=== PATIENT | female | born 1980 | race Hispanic/Latino ===

== ENCOUNTER 2017-07-05 21:57 | Emergency (ER) | payer OTHER ==
[2017-07-05] MEDS ORDERED: Morphine 4 MG/ML VIAL ONE (22:58)
[2017-07-05] MEDS ORDERED: Ondansetron HCl/PF 4 MG/2 ML Vial ONE ×2 (22:59→23:06)
[2017-07-05 23:14] LABS: #Eosinphils 0.1 thou/uL (0.0-0.7); #Lymphocytes 3.2 thou/uL (1.20-3.40); #Monocytes 0.9 thou/uL (0.11-0.59); #Neutrophils 5.8 thou/uL (1.40-6.50); %Basophils 0.1 % (0.0-1.0); %Eosinophils 0.7 % (0.0-10.0); %Lymphocytes 32.2 % (21.0-51.0); %Monocytes 8.7 % (0.0-10.0); %Neutrophils 58.2 % (42.0-75.0); Hemoglobin 13.2 g/dL (12.0-16.0); Mean Corpuscular HGB CONC 34.7 g/dL (32.0-36.0); Mean Corpuscular Hemoglobin 32.6 pg (27.0-31.0); Mean Corpuscular Volume 93.9 fl (81.0-99.0); Mean Platelet Volume 7.2 fL (7.4-10.4); Platelet Count 286 thou/uL (130-400); RBC Distribution Width 11.9 % (11.5-14.5); Red Blood Cell (RBC) Count 4.06 mill/uL (4.20-5.40)
[2017-07-05 23:30] LABS: Anion Gap 9 mmol/L (10-20); BUN (Urea Nitrogen) 9 mg/dL (7.0-18.7); CRP (Inflammatory) Less than 0.50 mg/dL (= or < 0.5); Calc. Creatinine Clearance 0 mL/min (70-130); Calcium 9.2 mg/dL (7.8-10.44); Carbon Dioxide 29 mmol/L (22-29); Chloride 103 mmol/L (98-107); Estimated GFR-MDRD 90; Glucose 88 mg/dL (70-105); Potassium 3.1 mmol/L (3.5-5.1); Sodium 138 mmol/L (136-145)
[2017-07-05 23:38] LABS: BHCG - Serum Negative (NEGATIVE); Pregs Control Background? CLEAR/WHITE (CLR/WHITE); Pregs Control Bar Appear? YES (CONTROL BAR)
[2017-07-05] MEDS ORDERED: HYDROcodone/Acetaminophen 5/325 mg Tablet ONE (23:53)
== END 2017-07-06 00:13 | disposition home or self-care (01) ==
LOC: ERS 21:57
DX: M70.72 Other bursitis of hip, left hip (principal); M06.9 Rheumatoid arthritis, unspecified; J45.909 Unspecified asthma, uncomplicated; G43.909 Migraine, unspecified, not intractable, without status migrainosus; F32.9 Major depressive disorder, single episode, unspecified; F41.9 Anxiety disorder, unspecified; Z79.52 Long term (current) use of systemic steroids; Z79.899 Other long term (current) drug therapy
CPT/HCPCS: 80048; 84703; 85025; 85652; 86140; 96374; 96375; J2270; J2405

== ENCOUNTER 2018-02-14 11:52 | Emergency (ER) | payer OTHER ==
[2018-02-14 12:44] LABS: #Basophils 0.1 thou/uL (0.0-0.2); #Lymphocytes 2.1 thou/uL (1.20-3.40); #Monocytes 0.5 thou/uL (0.11-0.59); #Neutrophils 2.6 thou/uL (1.40-6.50); %Basophils 1.3 % (0.0-1.0); %Eosinophils 0.8 % (0.0-10.0); %Lymphocytes 39.8 % (21.0-51.0); %Monocytes 9.3 % (0.0-10.0); %Neutrophils 48.8 % (42.0-75.0); Hemoglobin 15.4 g/dL (12.0-16.0); Mean Corpuscular Hemoglobin 30.7 pg (27.0-31.0); Mean Corpuscular Volume 92.9 fL (78.0-98.0); Mean Platelet Volume 7.3 fL (7.4-10.4); Platelet Count 294 thou/uL (130-400); RBC Distribution Width 11.2 % (11.5-14.5); Red Blood Cell (RBC) Count 5.03 mill/uL (4.20-5.40); White Blood Cell (WBC) Count 5.3 thou/uL (4.8-10.8)
[2018-02-14 13:07] LABS: ALT (SGPT) 17 U/L (8-55); AST (SGOT) 14 U/L (5-34); Albumin 4.6 g/dL (3.5-5.0); Alkaline Phosphatase 43 U/L (40-150); Anion Gap 11 mmol/L (10-20); BUN (Urea Nitrogen) 12 mg/dL (7.0-18.7); CK (CPK) 32 U/L (29-168); Calc. Creatinine Clearance 0 mL/min (70-130); Calcium 9.7 mg/dL (7.8-10.44); Carbon Dioxide 27 mmol/L (22-29); Chloride 104 mmol/L (98-107); Estimated GFR-MDRD 72; Globulin 2.9 g/dL (2.4-3.5); Glucose 89 mg/dL (70-105); Lipase 18 U/L (8-78); Protein, Total 7.5 g/dL (6.0-8.3); Sodium 138 mmol/L (136-145)
[2018-02-14 13:09] LABS: CKMB 0.4 ng/mL (0-6.6); Troponin I Less than 0.010 ng/mL (< 0.028)
--- NOTE | 2018-02-14 13:16 | RAD ---
AP VIEW CHEST: HISTORY: Chest pain. FINDINGS: AP chest was obtained on 02/14/2018. Comparison is made to the previous exam from 08/28/2016. AP view chest demonstrates the lungs to be well aerated. No evidence of active intrathoracic disease seen. No evidence of effusions, pneumonia, or pneumothorax seen. IMPRESSION: Unremarkable AP view chest. POS: [facility]
[2018-02-14] MEDS ORDERED: Propranolol HCl 20 MG TAB PO SCH (15:00)
[2018-02-14 17:45] LABS: Troponin I Less than 0.010 ng/mL (< 0.028)
== END 2018-02-14 18:23 | disposition home or self-care (01) ==
LOC: ERS 11:52
DX: R07.2 Precordial pain (principal); M06.9 Rheumatoid arthritis, unspecified; J45.909 Unspecified asthma, uncomplicated; G43.909 Migraine, unspecified, not intractable, without status migrainosus; F32.9 Major depressive disorder, single episode, unspecified; F41.9 Anxiety disorder, unspecified; Z79.899 Other long term (current) drug therapy
CPT/HCPCS: 36415; 71045; 80053; 82550; 82553; 83690; 84484; 85025; 93005

== ENCOUNTER 2018-09-14 17:14 | Emergency (ER) | payer OTHER, SELFPAY ==
[2018-09-14 17:44] LABS: Bilirubin Negative (Negative); Blood, Urine Small (Negative); Clarity CLEAR (Clear); Glucose, Urine (Dipstick) Negative (Negative); Leukocyte Negative (Negative); Nitrite Negative (Negative); Protein, Urine (Dipstick) Negative (Neg-Trace); Urobilinogen 0.2 mg/dL (0.2-1.0); pH, Urine 5.5 (5.0-9.0)
[2018-09-14 17:46] LABS: Pregnancy Test - Urine (BHCG) Negative (Negative); Pregu Control Background? CLEAR/WHITE (CLR/WHITE); Pregu Control Bar Appear? YES (CONTROL BAR)
[2018-09-14 17:47] LABS: Bacteria/HPF None Seen HPF (None Seen); Hyaline Casts/LPF 4-6 HYALINE CAST LPF (0-3 Hyaline); Pathc Cast-AUWi Flag 1.22 (0-2.49); Squamous Epithelial 0-3 HPF (0-3); WBC/HPF 0-3 HPF (0-3)
--- NOTE | 2018-09-14 18:41 | ULT ---
Exam: Pelvic ultrasound HISTORY: Pelvic pain COMPARISON: None TECHNIQUE: Multiple grayscale and color Doppler images were obtained in a transabdominal and transvag inal pelvic ultrasound. Spectral analysis of the Doppler waveforms of the ovaries were performed. FINDINGS: CERVIX: Grossly within normal limits where visualized. UTERUS: Mildly heterogeneous in appearance. ENDOMETRIAL STRIPE: Linearly oriented echogenic area within the region of the endometrial canal with associated posterior shadowing. This may be related to an intrauterine contraceptive device, but clinical correlation is suggested. No fluid is seen in the endometrial canal. RIGHT OVARY: Normal flow, without focal mass. LEFT OVARY:Few tiny less than 3 mm echogenic foci are seen within the left ovary which may represent tiny calcifications. Left ovary is otherwise normal in appearance. Flow is demonstrated in the left ovary. No free fluid is seen in the pelvis. IMPRESSION: 1. Mild heterogeneity of the uterus which is nonspecific. No focal mass is seen. 2. Increased echogenicity in the region of the endometrium with associated posterior shadowing. This may represent a intrauterine contraceptive device, but clinical correlation is recommended. 3. Probable tiny calcific lesions in the left ovary, though was otherwise have a normal sonographic a ppearance without focal mass. Flow is documented in each ovary.
[2018-09-14] MEDS ORDERED: Fioricet 325/50/40 mg Tablet PO SCH (19:15)
--- NOTE | 2018-09-14 19:46 | CT ---
CT lumbar spine without contrast: HISTORY: Lower back pain for one week. COMPARISON: No prior CT exams of the lumbar spine available FINDINGS: The visualized retroperitoneal structures demonstrate a normal nonenhanced CT appearance. The appendi x is visualized and normal in caliber. No fracture or subluxation is seen involving the lumbar spine L1-2: No significant central canal or neural foraminal narrowing is seen. L2-3: No significant central canal or neural foraminal narrowing is seen. L3-4: No significant central canal or neural foraminal narrowing is seen. L4-5: There is a mild broad-based disc bulge which does result in the anterior aspect of thecal sac a nd mild narrowing of the central spinal canal. Neural foramina are patent L5-S1: There is a minimal broad-based disc bulge at this level. Central spinal canal and neural lexy dacia are patent. IMPRESSION: 1. Mild disc bulges at the L4-5 and L5-S1 levels without significant narrowing of the central spinal canal at these levels, and the neural foramina are patent. 2. No fracture or subluxation involving lumbar spine.
== END 2018-09-14 20:54 | disposition home or self-care (01) ==
LOC: ERS 17:14
DX: M54.5 Low back pain (principal); R10.32 Left lower quadrant pain; G43.909 Migraine, unspecified, not intractable, without status migrainosus; F32.9 Major depressive disorder, single episode, unspecified; F41.9 Anxiety disorder, unspecified; Z79.899 Other long term (current) drug therapy
CPT/HCPCS: 72131; 76856; 81003; 81015; 81025

== ENCOUNTER 2020-01-12 08:41 | Emergency (ER) | payer BC, SELFPAY ==
[2020-01-12] MEDS ORDERED: diphenhydrAMINE 50 MG/ML VIAL ONE ×2 (09:24→09:25)
[2020-01-12] MEDS ORDERED: Metoclopramide 10 MG/10 ML UDCUP ONE (09:24)
[2020-01-12] MEDS ORDERED: Metoclopramide HCl 10 MG/2 ML VIAL ONE (09:25)
[2020-01-12] MEDS ORDERED: SUMAtriptan Succinate 6 MG/0.5 ML VIAL SC SCH (09:45)
== END 2020-01-12 10:38 | disposition home or self-care (01) ==
LOC: EEVIPCON 08:41 → ERS 08:41
DX: G43.909 Migraine, unspecified, not intractable, without status migrainosus (principal); M06.9 Rheumatoid arthritis, unspecified; J45.909 Unspecified asthma, uncomplicated; F32.9 Major depressive disorder, single episode, unspecified; F41.9 Anxiety disorder, unspecified
CPT/HCPCS: 96372; 99283; J1200; J2765; J3030

== ENCOUNTER 2020-02-11 13:34 | Observation (INO) | payer BC ==
[2020-02-11 15:16] LABS: #Basophils 0.1 thou/uL (0.0-0.2); #Eosinphils 0.1 thou/uL (0.0-0.7); #Lymphocytes 2.8 thou/uL (1.20-3.40); #Monocytes 0.6 thou/uL (0.11-0.59); #Neutrophils 4.4 thou/uL (1.40-6.50); %Basophils 0.7 % (0.0-1.0); %Eosinophils 0.9 % (0.0-10.0); %Lymphocytes 34.5 % (21.0-51.0); %Neutrophils 55.8 % (42.0-75.0); Hemoglobin 14.2 g/dL (12.0-16.0); Mean Corpuscular HGB CONC 34.5 g/dL (32.0-36.0); Mean Corpuscular Hemoglobin 31.8 pg (27.0-31.0); Mean Corpuscular Volume 92.2 fL (78.0-98.0); Mean Platelet Volume 7.7 fL (7.4-10.4); Platelet Count 268 thou/uL (130-400); RBC Distribution Width 11.8 % (11.5-14.5); Red Blood Cell (RBC) Count 4.48 mill/uL (4.20-5.40)
--- NOTE | 2020-02-11 15:30 | RAD ---
PORTABLE CHEST: Date: 02-11-2020 PROVIDED CLINICAL HISTORY: Chest pain FINDINGS: Comparison 02-14-18. Cardiac and mediastinal silhouette is within normal limits. There is a 7-8 mm left upper lobe pulmona ry nodule. The lungs appear otherwise clear. No pleural fluid or pneumothorax apparent. IMPRESSION: 7-8 mm left upper lung zone pulmonary nodule. Non-emergent follow up chest CT is recommended. Code: Lung Nodule POS: [facility]
[2020-02-11 15:43] LABS: ALT (SGPT) 13 U/L (8-55); AST (SGOT) 17 U/L (5-34); Albumin 4.3 g/dL (3.5-5.0); Alkaline Phosphatase 36 U/L (40-110); Anion Gap 13 mmol/L (10-20); BUN (Urea Nitrogen) 11 mg/dL (7.0-18.7); Bilirubin, Total 0.8 mg/dL (0.2-1.2); CK (CPK) 86 U/L (29-168); Calc. Creatinine Clearance 0 mL/min (70-130); Calcium 9.4 mg/dL (7.8-10.44); Carbon Dioxide 24 mmol/L (22-29); Chloride 104 mmol/L (98-107); Estimated GFR-MDRD 77; Globulin 2.9 g/dL (2.4-3.5); Glucose 86 mg/dL (70-105); Potassium 4.3 mmol/L (3.5-5.1); Protein, Total 7.2 g/dL (6.0-8.3); Sodium 137 mmol/L (136-145)
[2020-02-11] MEDS ORDERED: Aspirin Chewable 81 MG TAB ONE (16:06)
[2020-02-11] MEDS ORDERED: Nitroglycerin 2% Ointment 1 INCH/1 GM Packet ONE ×2 (16:06→16:07)
[2020-02-11] MEDS ORDERED: Nitroglycerin 0.4 MG TAB (25 Tab Bottle) SL PRN (16:50)
[2020-02-11] MEDS ORDERED: Acetaminophen 325 MG TAB PO PRN (16:53)
[2020-02-11] MEDS ORDERED: Scopolamine 1.5 mg/72 hour Patch TD PRN (16:53)
[2020-02-11 17:01] LABS: BHCG - Serum Negative (NEGATIVE); Pregs Control Background? CLEAR/WHITE (CLR/WHITE); Pregs Control Bar Appear? YES (CONTROL BAR)
[2020-02-11 18:21] LABS: Troponin I 0.015 ng/mL (< 0.028)
[2020-02-11] MEDS ORDERED: Ondansetron PF 4 MG/2 ML Vial IVP PRN (21:00)
[2020-02-11] MEDS ORDERED: Ondansetron ODT 4 MG TAB SL PRN (21:00)
--- NOTE | 2020-02-11 21:26 | HP ---
CHIEF COMPLAINT: Dizziness. HISTORY OF PRESENT ILLNESS: The patient is a 39-year-old female with past medical history of inappropriate sinus tachycardia status post multiple ablations, history of rheumatoid arthritis with lupus symptoms, asthma, and migraines, who presented to the ER with complaints of dizziness and chest pain that started earlier today and persistent intermittently throughout the day. The patient noticed that her heart rate was fluctuating between as high as 160 and as low as high 30s on her Apple watch. In the ER, the patient was placed on a case monitor. Heart rate was within normal limits. She is not experiencing any symptoms at this time. She denied shortness of breath, palpitations, cough, or fevers. REVIEW OF SYSTEMS: Negative except as noted above. PAST MEDICAL HISTORY: As noted in HPI. PAST SURGICAL HISTORY: Includes cholecystectomy, tonsillectomy, heart catheterization, and hemorrhoid surgery. SOCIAL HISTORY: The patient denies alcohol use, illicit drug use, or smoking. FAMILY HISTORY: Noncontributory for current presentation. ALLERGIES: THE PATIENT IS ALLERGIC TO CEPHALOSPORINS AND PENICILLINS. PHYSICAL EXAMINATION: GENERAL: The patient is alert and oriented x3. HEENT: Head is normocephalic and atraumatic. Extraocular muscles are intact. NECK: Supple. CHEST: Clear to auscultation bilaterally. CARDIOVASCULAR: Revealed normal S1 and S2. Regular rate and rhythm. No murmurs, rubs, or gallops. ABDOMEN: Nondistended. NEUROLOGIC: Nonfocal. LABORATORY DATA: Laboratory data revealed a negative troponin level and unremarkable BMP and CBC. ASSESSMENT: 1. Symptomatic tachycardia and bradycardia. 2. History of cardiac ablation. 3. History of rheumatoid arthritis. 4. Chest pain. 5. History of asthma. PLAN: The patient will be placed in observation and her cardiac status will be monitored overnight. She has been wearing an external case monitor per her ripper operator. We will consult Dr. Garay tomorrow for further input. Check two more sets of troponins. Lovenox for DVT prophylaxis. We will hold her home nebivolol. Job ID: [id number]
[2020-02-11 21:46] LABS: Troponin I Less than 0.010 ng/mL (< 0.028)
[2020-02-11 23:43] VITALS: BMI 29.7
[2020-02-12] MEDS: Hydroxychloroquine Sulfate 200 MG TAB PO SCH ×3 (00:51→23:27)
[2020-02-12 04:29] LABS: #Basophils 0.1 thou/uL (0.0-0.2); #Eosinphils 0.2 thou/uL (0.0-0.7); #Lymphocytes 3.5 thou/uL (1.20-3.40); #Monocytes 0.8 thou/uL (0.11-0.59); #Neutrophils 2.7 thou/uL (1.40-6.50); %Eosinophils 2.1 % (0.0-10.0); %Lymphocytes 48.8 % (21.0-51.0); %Monocytes 11.4 % (0.0-10.0); %Neutrophils 36.8 % (42.0-75.0); Hemoglobin 12.4 g/dL (12.0-16.0); Mean Corpuscular HGB CONC 35.7 g/dL (32.0-36.0); Mean Corpuscular Hemoglobin 32.9 pg (27.0-31.0); Mean Platelet Volume 7.7 fL (7.4-10.4); Platelet Count 220 thou/uL (130-400); RBC Distribution Width 11.7 % (11.5-14.5); Red Blood Cell (RBC) Count 3.78 mill/uL (4.20-5.40); White Blood Cell (WBC) Count 7.2 thou/uL (4.8-10.8)
[2020-02-12 04:57] LABS: Anion Gap 11 mmol/L (10-20); BUN (Urea Nitrogen) 20 mg/dL (7.0-18.7); Calc. Creatinine Clearance 127 mL/min (70-130); Calcium 8.8 mg/dL (7.8-10.44); Carbon Dioxide 24 mmol/L (22-29); Chloride 106 mmol/L (98-107); Estimated GFR-MDRD 79; Glucose 103 mg/dL (70-105); Sodium 137 mmol/L (136-145)
[2020-02-12] MEDS: Enoxaparin Sodium 40 MG/0.4 ML SYRINGE SC SCH (09:37)
[2020-02-12 13:02] LABS: SARS-CoV-2 MS2 Positive; SARS-CoV-2 N Gene Negative; SARS-CoV-2 S Gene Negative; SARS-CoV-2 by NAA Not Detected (NotDetected); SARS-CoV-2 orf1ab Negative
--- NOTE | 2020-02-12 16:40 | PDOC.HOSPP ---
- Subjective Encounter Date: 02/12/20 Encounter Time: 08:00 Subjective: Patient seen for follow-up regarding arrhythmia. She denies chest pain or shortness of breath at this time. - Objective Vital Signs & Weight: Vital Signs (12 hours) Temp Pulse Resp BP Pulse Ox 02/12/20 15:21 97.2 F L 78 16 112/56 L 99 02/12/20 11:33 97.7 F 77 16 110/56 L 99 02/12/20 07:36 98.1 F 75 16 107/53 L 100 02/12/20 07:33 100 Weight Weight 189 lb 9 oz I&O: 02/11/20 02/12/20 02/13/20 06:59 06:59 06:59 Intake Total 850 Balance 850 Result Diagrams: 02/12/20 04:13 02/12/20 04:13 Additional Labs: Labs and MAR reviewed by me EKG Reviewed by me: Yes (Telemetry: NSR) Hospitalist ROS - Review of Systems Respiratory: denies: cough, shortness of breath, SOB with excertion, pleuritic pain, wheezing Cardiovascular: denies: chest pain, palpitations, orthopnea, paroxysmal noc. dyspnea, edema, light headedness - Medication Medications: Active Medications Generic Name Dose Route Start Last Admin Trade Name Freq PRN Reason Stop Dose Admin Acetaminophen 650 mg 02/11/20 16:53 02/12/20 00:50 Acetaminophen 325 Mg Tab PO 650 mg Q6H PRN Administration Pain Enoxaparin Sodium 40 mg 02/12/20 09:00 02/12/20 09:37 Enoxaparin Sodium 40 Mg/0.4 Ml Syringe SC 40 mg 0900 SIERRA Administration Hydroxychloroquine Sulfate 200 mg 02/11/20 21:00 02/12/20 09:37 Hydroxychloroquine Sulfate 200 Mg Tab PO 200 mg BID SIERRA Administration - Exam General Appearance: awake alert Eye: anicteric sclera ENT: moist mucosa Neck: supple Heart: RRR Respiratory: CTAB Gastrointestinal: soft, non-tender Skin: no rashes Psychiatric: normal affect, normal behavior Hosp A/P (1) Arrhythmia Code(s): I49.9 - CARDIAC ARRHYTHMIA, UNSPECIFIED Status: Acute (2) Asthma Code(s): J45.909 - UNSPECIFIED ASTHMA, UNCOMPLICATED Status: Chronic (3) Migraines Code(s): G43.909 - MIGRAINE, UNSP, NOT INTRACTABLE, WITHOUT STATUS MIGRAINOSUS Status: Chronic (4) Rheumatoid arthritis Code(s): M06.9 - RHEUMATOID ARTHRITIS, UNSPECIFIED Status: Chronic - Plan Patient is currently in normal sinus rhythm, continue to monitor on telemetry. Await cardiology service input. Asthma stable. Rheumatoid arthritis stable. Migraine stable.
[2020-02-12] MEDS ORDERED: ALPRAZolam 0.5 MG TAB PO PRN (16:42)
[2020-02-12] MEDS ORDERED: FOLIC ACID PO SCH (16:45)
[2020-02-12] MEDS ORDERED: CERTOLIZUMAB PEGOL 400 MG/2 ML SC SCH (16:45)
[2020-02-12] MEDS ORDERED: [UNRECOGNIZED DRUG - OTHER] PO SCH (16:45)
[2020-02-12] MEDS ORDERED: LUTEIN PO SCH (16:45)
[2020-02-12] MEDS ORDERED: LEVONORGESTREL IUD IY SCH (16:45)
[2020-02-12] MEDS ORDERED: Leucovorin Calcium 5 MG TAB PO SCH (16:45)
[2020-02-12] MEDS ORDERED: MULTIVIT MIN PO SCH (16:45)
[2020-02-12] MEDS ORDERED: Methotrexate Sodium 2.5 MG TAB PO SCH (16:45)
--- NOTE | 2020-02-12 20:45 | CON ---
DATE OF CONSULTATION: HISTORY: Carol Miller is a 39-year-old female, who has a longstanding history of inappropriate sinus tachycardia and has undergone ablation in the past. The one electrophysiology report I have from [facility] is from March 2015 where she underwent ablation of paroxysmal supraventricular tachycardia. She was most recently seen on January 18, 2020, stating that she would have episodes of syncope/presyncope. She states that her heart rate could go into the 40s and she gets dizzy and short of breath. Also, she states her heart rate would go in the 160s. This was all via her Apple watch. She had a 30-day monitor placed when she was seen in the office. Also since then, echocardiogram was performed, which revealed ejection fraction of 50% to 55% with mild mitral regurgitation and mild tricuspid regurgitation. Yesterday, she had onset of somewhat sharp chest discomfort that would last for few seconds up to a minute. The pain was not pleuritic in nature. She continued to have these episodes and decided to be checked out. Cardiac enzymes have been unremarkable. PAST MEDICAL HISTORY: Rheumatoid arthritis, asthma, migraine headaches, inappropriate sinus tachycardia. OPERATIONS: Radiofrequency ablation, breast lumpectomy, breast reduction, laparoscopic evaluation for endometriosis, cholecystectomy, tonsillectomy, hemorrhoidectomy. SOCIAL HISTORY: She does not smoke or drink. FAMILY HISTORY: Unremarkable. MEDICATIONS: 1. Albuterol 2 puffs q.4 hours p.r.n. 2. Xanax 0.5 mg at bedtime p.r.n. 3. Cimzia 400 mg subcu q.28 days. 4. Vitamin D3. 5. Adderall 15 mg daily. 6. Folic acid 2 tablets q.7 days. 7. Plaquenil 200 mg b.i.d. 8. . 9. Vyvanse 50 mg q.a.m. 10. Methotrexate 15 mg q.7 days. 11. Prednisone 5 mg p.r.n. 12. Trazodone 50 at bedtime. ALLERGIES: KEFLEX, MORPHINE, PENICILLIN, AND SHELLFISH. REVIEW OF SYSTEMS: A 10-point review of systems is otherwise unremarkable. PHYSICAL EXAMINATION: VITAL SIGNS: Blood pressure 112/56, pulse of 78. HEENT: PERRL. NECK: Supple. CHEST: Clear. CARDIAC: S1 and S2 normal without any S3, S4, or murmurs. ABDOMEN: Normal bowel sounds without tenderness or organomegaly. EXTREMITIES: Reveal no clubbing, cyanosis, or edema. NEUROLOGIC: Grossly intact. MUSCULOSKELETAL: Revealed palpable chest wall tenderness. LABORATORY DATA: EKG reveals sinus rhythm. She has not had any significant shannan or tachycardia on the monitor. Sodium 137, potassium 4.3, chloride 106, carbon dioxide 24, BUN 20, creatinine 0.81. Cortisol recently was normal. Hemoglobin 12.4, hematocrit 34.8, white count 7200, platelets 220,000. COVID negative. IMPRESSION: 1. Atypical chest discomfort, probably chest wall in nature related to rheumatoid arthritis. 2. History of paroxysmal supraventricular tachycardia ablation as well as history of inappropriate sinus tachycardia. She states that her Apple watch shows heart rates in the 30s and 160s. However, at the same time, she has a 30-day monitor on and with her minimum heart rate on this has been 59 per minute, maximum heart rate 110 per minute, and so I feel that her Apple watch is totally inaccurate and should not be relied upon in the future. 3. Rheumatoid arthritis. 4. History of syncope, however, she has not had any episodes with a monitor on and she has not had any significant arrhythmias. PLAN: The patient will undergo adenosine Cardiolite testing to further evaluate her chest discomfort, although I feel this is not cardiac in nature. If that study is normal, then she may be discharged to continue to be monitored with the outpatient monitor. Once again, I emphasized to her that I would not follow her Apple watch because it is totally inaccurate. Job ID: [id number] [facility]
[2020-02-12] MEDS ORDERED: traZODone HCl 50 MG TAB PO SCH (21:00)
[2020-02-12] MEDS: Gabapentin 100 MG CAP PO SCH (23:26)
[2020-02-13 05:07] LABS: Anion Gap 11 mmol/L (10-20); BUN (Urea Nitrogen) 14 mg/dL (7.0-18.7); Calc. Creatinine Clearance 121 mL/min (70-130); Calcium 8.7 mg/dL (7.8-10.44); Carbon Dioxide 25 mmol/L (22-29); Chloride 106 mmol/L (98-107); Estimated GFR-MDRD 74; Glucose 95 mg/dL (70-105); Potassium 4.1 mmol/L (3.5-5.1); Sodium 138 mmol/L (136-145)
[2020-02-13 05:25] LABS: Band 2 % (5-11); Eosinophils 4 % (0-10); Hemoglobin 12.5 g/dL (12.0-16.0); Lymphocytes 48 % (21-51); MDiff Complete? YES; Mean Corpuscular HGB CONC 34.2 g/dL (32.0-36.0); Mean Corpuscular Hemoglobin 31.5 pg (27.0-31.0); Mean Corpuscular Volume 92.1 fL (78.0-98.0); Monocytes 5 % (0-10); Neutrophil 41 % (42-75); Platelet Count 227 thou/uL (130-400); Platelet Morphology Comment Appears Decreased; RBC Distribution Width 11.8 % (11.5-14.5); RBC Morphology Normal; Red Blood Cell (RBC) Count 3.98 mill/uL (4.20-5.40); White Blood Cell (WBC) Count 7.4 thou/uL (4.8-10.8)
[2020-02-13] MEDS ORDERED: Lisdexamfetamine Dimesylate [Vyvanse] 50 MG PO SCH (09:00)
[2020-02-13] MEDS ORDERED: Cholecalciferol 1,000 UNITS (25 MCG) TAB PO SCH (09:00)
--- NOTE | 2020-02-13 11:18 | NM ---
EXAM: CARDIAC SPECT HISTORY: Chest pain, syncope, status post ablation, asthma TECHNIQUE: A myocardial perfusion scan was performed using the single isotope 1 day protocol with denise hnetium 99m sestamibi. [10 mCi] was injected intravenously for the rest exam followed by 30 mCi for the stress study. Pharmacologic stress with Lexiscan was monitored and interpreted by the nurse practitioner FINDINGS: Homogeneous tracer distribution is seen in the myocardial segments on stress and rest image s without fixed or reversible defects. Gated SPECT LVEF: 58% Wall motion exam: Normal IMPRESSION: Normal myocardial perfusion scan
[2020-02-13 12:00] VITALS: BP 117/56; TEMP 98.9
[2020-02-13] MEDS: Enoxaparin Sodium 40 MG/0.4 ML SYRINGE SC SCH (12:09)
[2020-02-13] MEDS: Gabapentin 100 MG CAP PO SCH ×2 (12:10→14:30)
[2020-02-13] MEDS: Hydroxychloroquine Sulfate 200 MG TAB PO SCH (12:10)
[2020-02-13] MEDS ORDERED: Regadenoson 0.4 MG/5 ML SYRINGE ONE (13:32)
--- NOTE | 2020-02-13 14:14 | PDOC.DS.DS ---
Provider - Provider Date of Admission: 02/11/20 16:48 Date of Discharge: 02/13/20 Admitting Provider: Kamala Herrera MD Consultations: Cardiology (Dr. Garay) Primary Care Physician: Dino Jain MD Course - Hospital Course Hospital Course: Discharge diagnosis: 1. Chest pain 2. Chest pain likely due to musculoskeletal etiology 3. Pulmonary nodule 4. COVID-19 PCR test negative Hospital course: Patient is a pleasant 13-year-old lady who was admitted to [facility] on February 12, 2020 for slow heart rate as noted on her apple watch as well as chest pain. She was seen by cardiology service. Stress test was negative. Pulmonary embolism was ruled out with a negative D-dimer. Cardiology service informed her that the Apple Watch readings may be inaccurate, since she already had a monitor which did not show any evidence of bradycardia arrhythmias. She does have a lung nodule in the left upper lobe, will need nonemergent CT scan as outpatient. He has been advised to follow-up with her primary care provider for the same. - Labs Lab Results: 02/13/20 04:03 02/13/20 04:03 Abnormal Lab Results - Last 48 hrs 02/11/20 15:04: Alkaline Phosphatase 36 L 02/11/20 15:04: MCH 31.8 H, Monocytes # 0.6 H 02/12/20 04:13: BUN 20 H 02/12/20 04:13: RBC 3.78 L, Hct 34.8 L, MCH 32.9 H, Neutrophils % 36.8 L, Mon ocytes % 11.4 H, Lymphocytes # 3.5 H, Monocytes # 0.8 H 02/13/20 04:03: RBC 3.98 L, MCH 31.5 H, Neutrophils % (Manual) 41 L, Band Neuts % (Manual) 2 L, Plt Morphology Comment Appears Decreased L 02/13/20 13:12: D-Dimer Less than 0.27 L - Physical Exam Vitals: Vital Signs (12 hours) Temp Pulse Resp BP Pulse Ox 02/13/20 11:59 98.9 F 66 20 117/56 L 100 02/13/20 08:34 96 02/13/20 07:32 98.3 F 69 16 103/50 L 96 02/13/20 03:50 98.3 F 74 16 106/55 L 98 Weight Weight 189 lb 9 oz Physical Exam: The patient was seen and examined on the day of discharge. Patient denies chest pain or shortness of breath. Vital signs are stable. S1 and S2 are heard. Lungs are clear to auscultation bilaterally. Problem - Problem (1) Arrhythmia Code(s): I49.9 - CARDIAC ARRHYTHMIA, UNSPECIFIED Status: Acute (2) Asthma Code(s): J45.909 - UNSPECIFIED ASTHMA, UNCOMPLICATED Status: Chronic (3) Migraines Code(s): G43.909 - MIGRAINE, UNSP, NOT INTRACTABLE, WITHOUT STATUS MIGRAINOSUS Status: Chronic (4) Rheumatoid arthritis Code(s): M06.9 - RHEUMATOID ARTHRITIS, UNSPECIFIED Status: Chronic Plan - Discharge Medications Home Medications: Medication Instructions Recorded Confirmed Type Levonorgestrel [Mirena] 1 each IY ONE 09/17/12 02/12/20 History ALPRAZolam [Xanax] 0.5 mg PO HS PRN 02/25/15 02/12/20 History Albuterol Sulfate [Proventil Hfa] 2 puff INH Q4H PRN 02/25/15 02/12/20 History Certolizumab Pegol [Cimzia] 400 mg SC Q28D 02/25/15 02/12/20 History Cholecalciferol (Vitamin D3) 5,000 unit PO DAILY 02/25/15 02/12/20 History [Vitamin D3] Folic Acid/Multivit-Min/Lutein 2 tablet PO Q7D 02/25/15 02/12/20 History [Multi-Vitamin Gummies] Hydroxychloroquine Sulfate 200 mg PO BID 02/25/15 02/12/20 History [Plaquenil] Lisdexamfetamine Dimesylate 50 mg PO QAM 02/25/15 02/12/20 History [Vyvanse] Methotrexate Sodium 15 mg PO Q7D 02/25/15 02/12/20 History predniSONE 5 mg PO PRN PRN 02/25/15 02/12/20 History Dextroamphetamine/Amphetamine 15 mg PO DAILY 02/12/20 02/12/20 History [Adderall] Gabapentin 100 mg PO TID 02/12/20 02/12/20 History Leucovorin Calcium 5 mg PO Q7D 02/12/20 02/12/20 History Ondansetron HCl 4 mg PO PRN PRN 02/12/20 02/12/20 History SUMAtriptan Succinate [Sumatriptan 6 mg SC ASDIR PRN 02/12/20 02/12/20 History Succinate] traZODone HCl [Trazodone HCl] 50 mg PO HS 02/12/20 02/12/20 History Allergies: cephalexin monohydrate [From Keflex] Allergy (Verified 08/29/19 20:00) Short of Breath morphine Allergy (Verified 02/11/20 23:59) Penicillins Allergy (Verified 08/29/19 20:00) Rash shellfish derived Allergy (Verified 02/11/20 23:59) TAPE Allergy (Uncoded 08/29/19 20:00) Hives - Discharge Instructions Discharge Instructions:: Follow-up with primary care provider regarding lung nodule. You will need CT scan of chest as outpatient. Activity:: No Restrictions Nourishment:: Heart Healthy Diet - Follow up Plan Referrals: Dino Jain MD [Primary Care Provider] - 3 Days (Please call the office to schedule an appointment within 7 days. ) Disposition: HOME Quality - Care Measures CORE MEASURES:: N/A
[2020-02-13] MEDS ORDERED: DEXTROAMPHETAMINE PO SCH (16:00)
[2020-02-13] MEDS ORDERED: AMPHETAMINE PO SCH (16:00)
== END 2020-02-13 15:01 | disposition home or self-care (01) ==
LOC: ERS 13:34 → 2NO 15:17 → INTOOBSV 16:48 → ERHOLD 16:48 → 2NO 20:58
PROVIDERS: ADMIT Internal Medicine; ATTEND Internal Medicine
DX: I49.9 Cardiac arrhythmia, unspecified (principal); R07.89 Other chest pain; R91.1 Solitary pulmonary nodule; J45.909 Unspecified asthma, uncomplicated; G43.909 Migraine, unspecified, not intractable, without status migrainosus; M06.9 Rheumatoid arthritis, unspecified; Z79.899 Other long term (current) drug therapy; Z88.0 Allergy status to penicillin; Z88.1 Allergy status to other antibiotic agents; Z88.5 Allergy status to narcotic agent; Z91.013 Allergy to seafood; Z91.048 Other nonmedicinal substance allergy status; Z20.828 Contact with and (suspected) exposure to other viral communicable diseases
CPT/HCPCS: 36415; 36600; 71045; 78452; 80048; 80053; 82550; 84484; 84703; 85025; 85379; 87635; 93005; 93017; 94760; 96372; A9500; G0378; J1650; J2785; U0003

== ENCOUNTER 2020-04-29 20:57 | Emergency (ER) | payer BC ==
[2020-04-29] MEDS ORDERED: diphenhydrAMINE 50 MG/ML VIAL ONE (21:36)
[2020-04-29] MEDS ORDERED: Ketorolac Tromethamine 30 MG/ML VIAL ONE (21:36)
[2020-04-29] MEDS ORDERED: Metoclopramide 10 MG/10 ML UDCUP ONE (21:36)
[2020-04-29] MEDS ORDERED: Metoclopramide HCl 10 MG/2 ML VIAL ONE (21:37)
[2020-04-30 14:17] LABS: SARS-CoV-2 PCR by NAA Not Detected (NotDetected)
== END 2020-04-29 23:02 | disposition home or self-care (01) ==
LOC: ERS 20:57
DX: G43.909 Migraine, unspecified, not intractable, without status migrainosus (principal); J06.9 Acute upper respiratory infection, unspecified; M06.9 Rheumatoid arthritis, unspecified; J45.909 Unspecified asthma, uncomplicated; Z20.822 Contact with and (suspected) exposure to COVID-19; Z79.899 Other long term (current) drug therapy
CPT/HCPCS: 87635; 96374; 96375; J1200; J1885; J2765; U0003; U0005

== ENCOUNTER 2020-07-08 00:23 | Emergency (ER) | payer BC ==
[2020-07-08] MEDS ORDERED: methylPREDNISolone Sod Succ/PF 125 MG/2 ML VIAL ONE (00:57)
[2020-07-08] MEDS ORDERED: Famotidine/PF 20 mg/2ml Vial ONE (00:57)
[2020-07-08] MEDS ORDERED: Morphine 4 MG/ML VIAL ONE (00:57)
[2020-07-08] MEDS ORDERED: Ondansetron PF 4 MG/2 ML Vial ONE ×2 (00:57→02:49)
[2020-07-08] MEDS ORDERED: diphenhydrAMINE 50 MG/ML VIAL ONE (00:57)
[2020-07-08] MEDS ORDERED: Ketorolac Tromethamine 30 MG/ML VIAL ONE (01:04)
[2020-07-08 01:16] LABS: Mean Corpuscular HGB CONC 34.6 g/dL (32.0-36.0); Mean Corpuscular Hemoglobin 31.9 pg (27.0-31.0); Mean Corpuscular Volume 92.4 fL (78.0-98.0); Mean Platelet Volume 7.8 fL (7.4-10.4); Platelet Count 239 thou/uL (130-400); Red Blood Cell (RBC) Count 4.39 mill/uL (4.20-5.40)
[2020-07-08 01:20] LABS: ALT (SGPT) 12 U/L (8-55); AST (SGOT) 12 U/L (5-34); Albumin 4.1 g/dL (3.5-5.0); Alkaline Phosphatase 34 U/L (40-110); Anion Gap 12 mmol/L (10-20); BUN (Urea Nitrogen) 16 mg/dL (7.0-18.7); Calc. Creatinine Clearance 0 mL/min (70-130); Calcium 8.8 mg/dL (7.8-10.44); Carbon Dioxide 24 mmol/L (22-29); Chloride 105 mmol/L (98-107); Globulin 2.4 g/dL (2.4-3.5); Glucose 98 mg/dL (70-105); Lipase 31 U/L (8-78); Potassium 3.8 mmol/L (3.5-5.1); Protein, Total 6.5 g/dL (6.0-8.3); Sodium 137 mmol/L (136-145)
[2020-07-08 01:22] LABS: Band 9 % (5-11); Lymphocytes 8 % (21-51); MDiff Complete? YES; Monocytes 1 % (0-10); Neutrophil 82 % (42-75)
[2020-07-08] MEDS ORDERED: Fentanyl 100 MCG/2 ML VIAL ONE (02:49)
[2020-07-08] MEDS ORDERED: Iopamidol-370 76% 500 ML 1 ML ONE (09:42)
== END 2020-07-08 04:20 | disposition home health service (06) ==
LOC: ERS 00:23
DX: K59.00 Constipation, unspecified (principal); D72.829 Elevated white blood cell count, unspecified; M06.9 Rheumatoid arthritis, unspecified; J45.909 Unspecified asthma, uncomplicated
CPT/HCPCS: 36415; 71045; 74177; 80053; 83690; 84484; 85025; 93005; 94760; 96374; 96375; J1200; J1885; J2270; J2405; J2930; J3010; Q9967; S0028

== ENCOUNTER 2020-08-26 12:47 | Emergency (ER) | payer BC ==
[2020-08-26 13:22] LABS: #Basophils 0.1 thou/uL (0.0-0.2); #Eosinphils 0.1 thou/uL (0.0-0.7); #Lymphocytes 2.6 thou/uL (1.20-3.40); #Monocytes 0.6 thou/uL (0.11-0.59); #Neutrophils 2.4 thou/uL (1.40-6.50); %Eosinophils 1.4 % (0.0-10.0); %Lymphocytes 45.1 % (21.0-51.0); %Monocytes 10.9 % (0.0-10.0); %Neutrophils 41.5 % (42.0-75.0); Hemoglobin 14.1 g/dL (12.0-16.0); Mean Corpuscular Hemoglobin 31.4 pg (27.0-31.0); Mean Corpuscular Volume 92.5 fL (78.0-98.0); Mean Platelet Volume 7.5 fL (7.4-10.4); Platelet Count 274 thou/uL (130-400); RBC Distribution Width 11.7 % (11.5-14.5); Red Blood Cell (RBC) Count 4.49 mill/uL (4.20-5.40); White Blood Cell (WBC) Count 5.8 thou/uL (4.8-10.8)
[2020-08-26 13:44] LABS: ALT (SGPT) 12 U/L (8-55); AST (SGOT) 14 U/L (5-34); Albumin 4.2 g/dL (3.5-5.0); Alkaline Phosphatase 34 U/L (40-110); Anion Gap 11 mmol/L (10-20); BUN (Urea Nitrogen) 6 mg/dL (7.0-18.7); Bilirubin, Total 0.6 mg/dL (0.2-1.2); Calc. Creatinine Clearance 0 mL/min (70-130); Calcium 9.1 mg/dL (7.8-10.44); Carbon Dioxide 24 mmol/L (22-29); Chloride 106 mmol/L (98-107); Globulin 2.8 g/dL (2.4-3.5); Glucose 96 mg/dL (70-105); Lipase 24 U/L (8-78); Potassium 3.4 mmol/L (3.5-5.1); Sodium 138 mmol/L (136-145)
[2020-08-26 14:35] LABS: BHCG - Serum Negative (NEGATIVE); Pregs Control Background? CLEAR/WHITE (CLR/WHITE); Pregs Control Bar Appear? YES (CONTROL BAR)
[2020-08-26 15:01] LABS: Thyroid Stimulating Hormone 0.8205 uIU/mL (0.35-4.94)
== END 2020-08-26 17:38 | disposition home or self-care (01) ==
LOC: ERS 12:47
DX: R00.2 Palpitations (principal); J45.909 Unspecified asthma, uncomplicated; G43.909 Migraine, unspecified, not intractable, without status migrainosus
CPT/HCPCS: 36415; 71045; 80053; 82550; 83690; 83735; 84443; 84484; 84703; 85025; 93005

== ENCOUNTER 2020-10-09 14:31 | Emergency (ER) | payer BC ==
[2020-10-09 17:30] LABS: #Eosinphils 0.1 thou/uL (0.0-0.7); #Lymphocytes 2.4 thou/uL (1.20-3.40); #Monocytes 0.9 thou/uL (0.11-0.59); #Neutrophils 3.9 thou/uL (1.40-6.50); %Basophils 0.5 % (0.0-1.0); %Eosinophils 1.7 % (0.0-10.0); %Lymphocytes 32.9 % (21.0-51.0); Hemoglobin 13.4 g/dL (12.0-16.0); Mean Corpuscular Hemoglobin 32.8 pg (27.0-31.0); Mean Corpuscular Volume 93.8 fL (78.0-98.0); Mean Platelet Volume 7.8 fL (7.4-10.4); Platelet Count 236 thou/uL (130-400); RBC Distribution Width 11.4 % (11.5-14.5); Red Blood Cell (RBC) Count 4.09 mill/uL (4.20-5.40); White Blood Cell (WBC) Count 7.4 thou/uL (4.8-10.8)
[2020-10-09 17:37] LABS: BHCG - Serum Negative (NEGATIVE); Pregs Control Background? CLEAR/WHITE (CLR/WHITE); Pregs Control Bar Appear? YES (CONTROL BAR)
[2020-10-09 17:51] LABS: ALT (SGPT) 9 U/L (8-55); AST (SGOT) 15 U/L (5-34); Alkaline Phosphatase 35 U/L (40-110); Anion Gap 13 mmol/L (10-20); BUN (Urea Nitrogen) 10 mg/dL (7.0-18.7); Bilirubin, Total 0.8 mg/dL (0.2-1.2); Calc. Creatinine Clearance 0 mL/min (70-130); Calcium 8.9 mg/dL (7.8-10.44); Carbon Dioxide 19 mmol/L (22-29); Chloride 110 mmol/L (98-107); Globulin 2.5 g/dL (2.4-3.5); Glucose 79 mg/dL (70-105); Potassium 3.4 mmol/L (3.5-5.1); Protein, Total 6.5 g/dL (6.0-8.3); Sodium 139 mmol/L (136-145)
== END 2020-10-09 18:55 | disposition home or self-care (01) ==
LOC: ERS 14:31
DX: E87.6 Hypokalemia (principal); R42 Dizziness and giddiness; G43.909 Migraine, unspecified, not intractable, without status migrainosus; Z79.899 Other long term (current) drug therapy
CPT/HCPCS: 36415; 71045; 80053; 84484; 84703; 85025; 93005

== ENCOUNTER 2021-01-29 18:14 | Emergency (ER) | payer BC ==
[2021-01-29 19:26] LABS: #Basophils 0.1 thou/uL (0.0-0.2); #Eosinphils 0.1 thou/uL (0.0-0.7); #Lymphocytes 2.9 thou/uL (1.20-3.40); #Neutrophils 3.5 thou/uL (1.40-6.50); %Basophils 0.7 % (0.0-1.0); %Eosinophils 1.7 % (0.0-10.0); %Lymphocytes 37.8 % (21.0-51.0); %Monocytes 12.9 % (0.0-10.0); Hemoglobin 13.2 g/dL (12.0-16.0); Mean Corpuscular HGB CONC 33.5 g/dL (32.0-36.0); Mean Corpuscular Hemoglobin 30.6 pg (27.0-31.0); Mean Corpuscular Volume 91.4 fL (78.0-98.0); Mean Platelet Volume 8.4 fL (7.4-10.4); Platelet Count 261 thou/uL (130-400); RBC Distribution Width 11.8 % (11.5-14.5); Red Blood Cell (RBC) Count 4.33 mill/uL (4.20-5.40); White Blood Cell (WBC) Count 7.5 thou/uL (4.8-10.8)
[2021-01-29 19:54] LABS: ALT (SGPT) 11 U/L (8-55); AST (SGOT) 13 U/L (5-34); Albumin 4.1 g/dL (3.5-5.0); Alkaline Phosphatase 41 U/L (40-110); Anion Gap 10 mmol/L (10-20); BUN (Urea Nitrogen) 10 mg/dL (7.0-18.7); Bilirubin, Total 0.8 mg/dL (0.2-1.2); Calc. Creatinine Clearance 0 mL/min (70-130); Calcium 9.1 mg/dL (7.8-10.44); Carbon Dioxide 25 mmol/L (22-29); Chloride 106 mmol/L (98-107); Glucose 88 mg/dL (70-105); Potassium 3.6 mmol/L (3.5-5.1); Sodium 137 mmol/L (136-145)
[2021-01-29 20:05] LABS: Globulin 2.8 g/dL (2.4-3.5); Protein, Total 6.9 g/dL (6.0-8.3)
[2021-01-29] MEDS ORDERED: Ketorolac Tromethamine 30 MG/ML VIAL ONE (20:26)
== END 2021-01-29 20:48 | disposition home or self-care (01) ==
LOC: ERS 18:14
DX: R09.1 Pleurisy (principal); M06.9 Rheumatoid arthritis, unspecified; I10 Essential (primary) hypertension; G43.909 Migraine, unspecified, not intractable, without status migrainosus; J45.909 Unspecified asthma, uncomplicated
CPT/HCPCS: 36415; 71045; 80053; 83880; 84443; 84484; 85025; 85379; 93005; 96372; J1885

== ENCOUNTER 2021-06-03 15:07 | Emergency (ER) | payer BC, SELFPAY ==
[~2021-06-03 15:07] MED LIST: Iopamidol 370 76% 100 ML VIAL ONE
[2021-06-03 16:46] LABS: #Lymphocytes 0.5 thou/uL (1.20-3.40); #Monocytes 0.7 thou/uL (0.11-0.59); #Neutrophils 8.9 thou/uL (1.40-6.50); %Basophils 0.2 % (0.0-1.0); %Eosinophils 0.3 % (0.0-10.0); %Lymphocytes 4.6 % (21.0-51.0); %Monocytes 6.9 % (0.0-10.0); %Neutrophils 88.1 % (42.0-75.0); Hemoglobin 13.5 g/dL (12.0-16.0); Mean Corpuscular HGB CONC 32.6 g/dL (32.0-36.0); Mean Corpuscular Hemoglobin 30.8 pg (27.0-31.0); Mean Corpuscular Volume 94.5 fL (78.0-98.0); Mean Platelet Volume 7.5 fL (7.4-10.4); Platelet Count 198 thou/uL (130-400); RBC Distribution Width 11.3 % (11.5-14.5); Red Blood Cell (RBC) Count 4.38 mill/uL (4.20-5.40); White Blood Cell (WBC) Count 10.1 thou/uL (4.8-10.8)
[2021-06-03] MEDS ORDERED: Prochlorperazine 10 MG/2 ML VIAL ONE (16:51)
[2021-06-03 17:19] LABS: ALT (SGPT) 34 U/L (8-55); AST (SGOT) 27 U/L (5-34); Albumin 3.9 g/dL (3.5-5.0); Alkaline Phosphatase 36 U/L (40-110); Anion Gap 12 mmol/L (10-20); BUN (Urea Nitrogen) 12 mg/dL (7.0-18.7); Bilirubin, Total 0.9 mg/dL (0.2-1.2); Calc. Creatinine Clearance 0 mL/min (70-130); Calcium 8.6 mg/dL (7.8-10.44); Carbon Dioxide 24 mmol/L (22-29); Chloride 105 mmol/L (98-107); Globulin 2.8 g/dL (2.4-3.5); Glucose 104 mg/dL (70-105); Lipase 20 U/L (8-78); Potassium 3.8 mmol/L (3.5-5.1); Protein, Total 6.7 g/dL (6.0-8.3); Sodium 137 mmol/L (136-145)
[2021-06-03 17:30] LABS: BHCG - Serum Negative (NEGATIVE); Pregs Control Background? CLEAR/WHITE (CLR/WHITE); Pregs Control Bar Appear? YES (CONTROL BAR)
[2021-06-03] MEDS ORDERED: diphenhydrAMINE 12.5 MG/5 ML UDCUP ONE (19:05)
[2021-06-03] MEDS ORDERED: Metoclopramide HCl 10 MG/2 ML VIAL ONE (19:05)
[2021-06-03] MEDS ORDERED: diphenhydrAMINE 50 MG/ML VIAL ONE (19:06)
[2021-06-03] MEDS ORDERED: Acetaminophen 500 MG TAB ONE (19:49)
== END 2021-06-03 22:28 | disposition home or self-care (01) ==
LOC: ERS 15:07
DX: N83.201 Unspecified ovarian cyst, right side (principal); R11.10 Vomiting, unspecified; M06.9 Rheumatoid arthritis, unspecified; G43.909 Migraine, unspecified, not intractable, without status migrainosus; I10 Essential (primary) hypertension
CPT/HCPCS: 36415; 74177; 76856; 80053; 83690; 84703; 85025; 93976; 96374; 96375; J0780; J1200; J2765; Q0163; Q9967